=== PATIENT | male | born 1980 | race Caucasian/White ===

== ENCOUNTER 2018-07-24 10:59 | Inpatient (IN) | payer MEDICAID ==
[~2018-07-24] VITALS: Ht 180.3 cm; Wt 133.7 kg
[~2018-07-24 10:59] MED LIST: ALBU18HF INH; GUAI600T31 PO; IPRA3AMP30 NPPB; PRED20TA PO
--- NOTE | 2018-07-24 12:08 | NUR ---
lice noted on pt in triage, pt showered and placed in gown by edt. belongings double bagged, in pts room at this time. pt c/o sob and sternal chest "tightness" with cough for last several days, pt reports that chest tightness and sob are worse when he is around certain smells "like [employer] or alcohol swabs". pt also notes he has had a lesion to left leg with pain for last few weeks. +3 pulse to left dorsalis pedis. large lesion x 2 to left anterior lund. pt states he wears oxygen at 2L/min at all times, and states "my tank ran out this morning, I have more tanks though. I came here because my leg hurts and my inhaler wasn't helping my breathing." pt is a&o, resps even and unlabored. pt placed on all monitors. call light in reach. lab at bedside for draw. 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 belongings double bagged, in pts room at this time. pt c/o sob and sternal chest "tightness" with cough for last several days, pt reports that chest tightness and sob are worse when he is around certain smells "like [employer] or alcohol swabs". pt also notes he has had a lesion to left leg with pain for last few weeks. +3 pulse to left dorsalis pedis. large lesion x 2 to left anterior lund. pt states he wears oxygen at 2L/min at all times, and states "my tank ran out this morning, I have more tanks though. I came here because my leg hurts and my inhaler wasn't helping my breathing." pt is a&o, resps even and unlabored. pt placed on all monitors. mask placed on patient. call light in reach. lab at bedside for draw.
[2018-07-24 12:33] LABS: HCT (SEDRATE) 45.1 % (39.2-51.8)
[2018-07-24 12:34] LABS: BASOPHILS # (AUTO) 0.04 x10^3/uL (0-0.1); BASOPHILS % (AUTO) 0 % (0-1); EOSINOPHILS # (AUTO) 0.28 x10^3/uL (0-0.4); EOSINOPHILS % (AUTO) 3 % (1-7); LYMPHOCYTES # (AUTO) 1.18 x10^3/uL (1-3.4); LYMPHOCYTES % (AUTO) 12 % (22-44); MD NO; MEAN CORPUSCULAR HEMOGLOBIN 26.5 pg (27.5-34.5); MEAN CORPUSCULAR HGB CONC 32.6 g/dL (33.2-36.2); MEAN CORPUSCULAR VOLUME 81.3 fL (81-97); MEAN PLATELET VOLUME 7.6 fL (7.4-10.4); MONOCYTES # (AUTO) 0.37 x10^3/uL (0.2-0.8); MONOCYTES % (AUTO) 4 % (2-9); NEUTROPHILS # (AUTO) 8.31 x10^3/uL (1.8-6.8); NEUTROPHILS % (AUTO) 82 % (42-75); PLATELET COUNT 410 x10^3/uL (130-400); RED BLOOD COUNT 5.51 x10^6/uL (4.38-5.82)
[2018-07-24 12:46] LABS: ANION GAP 10 mmol/L (5-15); CALCIUM 9.2 mg/dL (8.5-10.1); CHLORIDE 107 mmol/L (98-107)
[2018-07-24 12:56] LABS: ALANINE AMINOTRANSFERASE 14 U/L (12-78); ALKALINE PHOSPHATASE 49 U/L (45-117); BILIRUBIN,TOTAL 0.4 mg/dL (0.2-1.0); CREATININE 0.96 mg/dL (0.7-1.3)
--- NOTE | 2018-07-24 13:05 | NUR ---
PT A&O, RESPS EVEN AND UNLABORED. NADN. PT TO XRAY AT THIS TIME.
[2018-07-24 13:06] LABS: TROPONIN I < 0.015 ng/mL (0.000-0.045)
[2018-07-24] MEDS ORDERED: ALBUTEROL/IPRATROPIUM 2.5MG/0.5MG, 3 ML NEB ONE (13:30)
--- NOTE | 2018-07-24 13:32 | NUR ---
PT BACK FROM XRAY, PT A&O, RESPS EVEN AND UNLABORED. PT UP TO BATHROOM TO VOID AT THIS TIME.
[2018-07-24] MEDS ORDERED: WELLBUTRIN PO (13:41)
[2018-07-24] MEDS ORDERED: METFORMIN PO (13:41)
[2018-07-24] MEDS ORDERED: TOPAMAX PO (13:41)
[2018-07-24] MEDS ORDERED: ALBUTEROL/IPRATROPIUM 2.5MG/0.5MG, 3 ML ONE (13:44)
[2018-07-24] MEDS ORDERED: CLINDAMYCIN PMX 900MG/50ML 50 ML IV ONE (14:00)
--- NOTE | 2018-07-24 14:00 | NUR ---
RT AT BEDSIDE FOR TX.
[2018-07-24] MEDS ORDERED: CLINDAMYCIN PMX 900MG/50ML 50 ML ONE (14:09)
[2018-07-24] MEDS ORDERED: SODIUM CHLORIDE FLUSH 10ML SYR IVF PRN (14:30)
--- NOTE | 2018-07-24 14:38 | NUR ---
ABX STARTED (PER EMAR) AFTER BLOOD CX DRAWN X 2. PT A&O, RESPS EVEN AND UNLABORED. PT HAS NO COMPLAINT AT THIS TIME.
[2018-07-24] MEDS ORDERED: LABETALOL 5MG/ML, 20ML IVPush PRN (15:00)
[2018-07-24] MEDS ORDERED: POLYETHYLENE GLYCOL 17 GM PACKET PO PRN (15:00)
[2018-07-24] MEDS ORDERED: ONDANSETRON ODT 4 MG PO PRN (15:00)
[2018-07-24] MEDS ORDERED: ONDANSETRON 2MG/ML, 2ML IVPush PRN (15:00)
--- NOTE | 2018-07-24 15:04 | NUR ---
REPORT GIVEN TO EUNICE SANCHES ; PT TRANSPORTED TO ROOM 369. NADN AT TRANSPORT.
[2018-07-24 15:31] VITALS: BP 112/65
[2018-07-24] MEDS: SODIUM CHLORIDE 0.9% 1,000 ML IV SCH ×2 (15:40→23:34)
[2018-07-24] MEDS ORDERED: VANCOMYCIN PER PHARMACY MC PRN (16:00)
[2018-07-24 16:14] LABS: FREE T4 (FREE THYROXINE) 1.2 ng/dL (0.76-1.46)
[2018-07-24] MEDS: AMPICILLIN/SULBACTAM 3 GM in SODIUM CHLORIDE 0.9% 100 ML IV SCH ×2 (16:40→22:37)
[2018-07-24] MEDS: ENOXAPARIN 40 MG/0.4 ML SQ SCH (16:40)
[2018-07-24] MEDS ORDERED: PHARMACOKINETIC CONSULTATION MC ONE (17:00)
[2018-07-24] MEDS ORDERED: PHARMACOKINETIC MONITORING MC PRN ×2 (17:00)
[2018-07-24] MEDS: VANCOMYCIN 2,100 MG in SODIUM CHLORIDE 0.9% 500 ML IV SCH (17:46)
[2018-07-24 20:00] VITALS: BP 117/76
[2018-07-25 02:00] VITALS: BP 128/80
[2018-07-25] MEDS ORDERED: ALBUTEROL SULFATE 2.5 MG/3 ML NPPB PRN (03:30)
[2018-07-25] MEDS: AMPICILLIN/SULBACTAM 3 GM in SODIUM CHLORIDE 0.9% 100 ML IV SCH ×2 (03:58→10:39)
[2018-07-25] MEDS: ENOXAPARIN 40 MG/0.4 ML SQ SCH ×2 (05:08→17:00)
[2018-07-25] MEDS: VANCOMYCIN 2,100 MG in SODIUM CHLORIDE 0.9% 500 ML IV SCH ×2 (05:08→17:24)
[2018-07-25 05:33] LABS: BASOPHILS # (AUTO) 0.02 x10^3/uL (0-0.1); BASOPHILS % (AUTO) 0 % (0-1); EOSINOPHILS # (AUTO) 0.06 x10^3/uL (0-0.4); EOSINOPHILS % (AUTO) 1 % (1-7); LYMPHOCYTES # (AUTO) 0.96 x10^3/uL (1-3.4); LYMPHOCYTES % (AUTO) 11 % (22-44); MD NO; MEAN CORPUSCULAR HEMOGLOBIN 26.6 pg (27.5-34.5); MEAN CORPUSCULAR HGB CONC 33.1 g/dL (33.2-36.2); MEAN CORPUSCULAR VOLUME 80.4 fL (81-97); MEAN PLATELET VOLUME 7.7 fL (7.4-10.4); MONOCYTES # (AUTO) 0.37 x10^3/uL (0.2-0.8); MONOCYTES % (AUTO) 4 % (2-9); NEUTROPHILS # (AUTO) 7.11 x10^3/uL (1.8-6.8); NEUTROPHILS % (AUTO) 84 % (42-75); PLATELET COUNT 351 x10^3/uL (130-400); RED BLOOD COUNT 4.94 x10^6/uL (4.38-5.82); RED CELL DISTRIBUTION WIDTH 16.7 % (9.4-14.8)
[2018-07-25 05:38] LABS: ALBUMIN 2.6 g/dL (3.4-5.0); ANION GAP 7 mmol/L (5-15); CALCIUM 8.7 mg/dL (8.5-10.1); CHLORIDE 105 mmol/L (98-107)
[2018-07-25 05:51] LABS: ALANINE AMINOTRANSFERASE 14 U/L (12-78); ALKALINE PHOSPHATASE 43 U/L (45-117); BILIRUBIN,TOTAL 0.3 mg/dL (0.2-1.0); CREATININE 0.71 mg/dL (0.7-1.3); THYROID STIMULATING HORMONE 0.856 mIU/L (0.358-3.740); TOTAL PROTEIN 7.5 g/dL (6.4-8.2)
[2018-07-25 07:37] VITALS: BP 122/75
[2018-07-25] MEDS: SODIUM CHLORIDE 0.9% 1,000 ML IV SCH ×2 (07:54→22:35)
[2018-07-25] MEDS: SENNA/DOCUSATE TABLET PO SCH (07:55)
[2018-07-25] MEDS ORDERED: GLUCAGON 1 MG IM PRN (13:00)
[2018-07-25] MEDS ORDERED: DEXTROSE 4 GM TAB.CHEW PO PRN (13:00)
[2018-07-25] MEDS ORDERED: DEXTROSE 50%, 50ML SYRINGE IVPush PRN (13:00)
[2018-07-25] MEDS ORDERED: BUPROPION 100 MG TABLET PO SCH (13:00)
[2018-07-25 13:05] VITALS: BP 101/59
[2018-07-25 13:27] LABS: LDL/HDL RATIO 2.4 (0.5-3.0)
[2018-07-25 13:36] LABS: HEMOGLOBIN A1C 6.6 % (4.2-6.3)
[2018-07-25] MEDS: INSULIN LISPRO 100 UNITS/ML, PEN SQ-INSULIN SCH ×2 (16:00→20:20)
[2018-07-25 20:06] VITALS: BP 120/75
[2018-07-25] MEDS: TOPIRAMATE 25 MG TABLET PO SCH (21:00)
[2018-07-25] MEDS: SODIUM CHLORIDE FLUSH 10ML SYR IVF SCH (21:19)
[2018-07-26] MEDS ORDERED: ALBUTEROL SULFATE 2.5 MG/3 ML NPPB PRN (00:30)
[2018-07-26 00:54] VITALS: BP 117/76
[2018-07-26] MEDS: VANCOMYCIN 2,100 MG in SODIUM CHLORIDE 0.9% 500 ML IV SCH (04:48)
[2018-07-26] MEDS: ENOXAPARIN 40 MG/0.4 ML SQ SCH ×2 (05:26→17:42)
[2018-07-26 05:48] LABS: BASOPHILS # (AUTO) 0.04 x10^3/uL (0-0.1); BASOPHILS % (AUTO) 1 % (0-1); EOSINOPHILS # (AUTO) 0.19 x10^3/uL (0-0.4); EOSINOPHILS % (AUTO) 3 % (1-7); LYMPHOCYTES % (AUTO) 25 % (22-44); MD NO; MEAN CORPUSCULAR HEMOGLOBIN 26.6 pg (27.5-34.5); MEAN CORPUSCULAR HGB CONC 32.9 g/dL (33.2-36.2); MEAN CORPUSCULAR VOLUME 80.9 fL (81-97); MEAN PLATELET VOLUME 7.6 fL (7.4-10.4); MONOCYTES # (AUTO) 0.43 x10^3/uL (0.2-0.8); MONOCYTES % (AUTO) 7 % (2-9); NEUTROPHILS # (AUTO) 3.76 x10^3/uL (1.8-6.8); NEUTROPHILS % (AUTO) 64 % (42-75); PLATELET COUNT 309 x10^3/uL (130-400); RED BLOOD COUNT 4.82 x10^6/uL (4.38-5.82); RED CELL DISTRIBUTION WIDTH 16.3 % (9.4-14.8)
[2018-07-26 05:49] LABS: ALBUMIN 2.4 g/dL (3.4-5.0); ANION GAP 5 mmol/L (5-15); CALCIUM 7.9 mg/dL (8.5-10.1); CHLORIDE 111 mmol/L (98-107)
[2018-07-26] MEDS: INSULIN LISPRO 100 UNITS/ML, PEN SQ-INSULIN SCH ×4 (07:35→20:56)
[2018-07-26 08:20] VITALS: BP 121/75
[2018-07-26] MEDS: SODIUM CHLORIDE 0.9% 1,000 ML IV SCH ×2 (08:57→23:55)
[2018-07-26] MEDS: SENNA/DOCUSATE TABLET PO SCH (08:58)
[2018-07-26] MEDS: TOPIRAMATE 25 MG TABLET PO SCH ×2 (08:58→20:55)
[2018-07-26] MEDS: MUPIROCIN OINT 2%, 22GM TP SCH (08:58)
[2018-07-26] MEDS: BUPROPION SR 150 MG TABLET PO SCH (08:58)
[2018-07-26] MEDS: SODIUM CHLORIDE FLUSH 10ML SYR IVF SCH ×2 (08:59→20:56)
[2018-07-26 13:44] VITALS: BP 121/72
[2018-07-26] MEDS: CEFAZOLIN PMX 2GM/50ML 50 ML IVPB SCH ×2 (17:03→23:55)
[2018-07-26 19:57] VITALS: BP 119/74
[2018-07-27 00:42] VITALS: BP 129/84
[2018-07-27 05:07] LABS: ALBUMIN 2.4 g/dL (3.4-5.0); ANION GAP 5 mmol/L (5-15); CALCIUM 8.6 mg/dL (8.5-10.1); CHLORIDE 110 mmol/L (98-107); CREATININE 0.71 mg/dL (0.7-1.3)
[2018-07-27 05:30] LABS: BASOPHILS # (AUTO) 0.03 x10^3/uL (0-0.1); BASOPHILS % (AUTO) 1 % (0-1); EOSINOPHILS # (AUTO) 0.18 x10^3/uL (0-0.4); EOSINOPHILS % (AUTO) 3 % (1-7); LYMPHOCYTES # (AUTO) 1.39 x10^3/uL (1-3.4); LYMPHOCYTES % (AUTO) 26 % (22-44); MD NO; MEAN CORPUSCULAR HEMOGLOBIN 26.5 pg (27.5-34.5); MEAN CORPUSCULAR HGB CONC 32.9 g/dL (33.2-36.2); MEAN CORPUSCULAR VOLUME 80.5 fL (81-97); MEAN PLATELET VOLUME 7.8 fL (7.4-10.4); MONOCYTES # (AUTO) 0.39 x10^3/uL (0.2-0.8); MONOCYTES % (AUTO) 7 % (2-9); NEUTROPHILS # (AUTO) 3.47 x10^3/uL (1.8-6.8); NEUTROPHILS % (AUTO) 64 % (42-75); PLATELET COUNT 294 x10^3/uL (130-400); RED BLOOD COUNT 4.86 x10^6/uL (4.38-5.82); RED CELL DISTRIBUTION WIDTH 16.6 % (9.4-14.8)
[2018-07-27] MEDS: INSULIN LISPRO 100 UNITS/ML, PEN SQ-INSULIN SCH ×4 (07:00→21:00)
[2018-07-27] MEDS: SODIUM CHLORIDE 0.9% 1,000 ML IV SCH ×3 (07:52→21:32)
[2018-07-27] MEDS: TOPIRAMATE 25 MG TABLET PO SCH ×2 (07:52→21:32)
[2018-07-27] MEDS: CEFAZOLIN PMX 2GM/50ML 50 ML IVPB SCH (07:52)
[2018-07-27] MEDS: BUPROPION SR 150 MG TABLET PO SCH (07:52)
[2018-07-27] MEDS: MUPIROCIN OINT 2%, 22GM TP SCH (07:59)
[2018-07-27] MEDS: ENOXAPARIN 40 MG/0.4 ML SQ SCH ×2 (08:00→20:00)
[2018-07-27] MEDS: SODIUM CHLORIDE FLUSH 10ML SYR IVF SCH ×2 (08:00→21:00)
[2018-07-27] MEDS: SENNA/DOCUSATE TABLET PO SCH (08:00)
[2018-07-27 08:16] VITALS: BP 143/90
[2018-07-27] MEDS ORDERED: ERTAPENEM 1 GM in SODIUM CHLORIDE 0.9% 50 ML IV SCH (10:30)
[2018-07-27 15:10] VITALS: BP_SYST 120; BP_SYST 96; BP_DIAS 62; BP_DIAS 77
[2018-07-27 20:30] VITALS: BP 123/77
[2018-07-28 00:34] VITALS: BP 122/83
[2018-07-28] MEDS: INSULIN LISPRO 100 UNITS/ML, PEN SQ-INSULIN SCH ×2 (07:00→11:00)
[2018-07-28 07:20] VITALS: BP 147/82
[2018-07-28] MEDS: SODIUM CHLORIDE 0.9% 1,000 ML IV SCH (07:30)
[2018-07-28] MEDS: ENOXAPARIN 40 MG/0.4 ML SQ SCH (07:47)
[2018-07-28] MEDS: SENNA/DOCUSATE TABLET PO SCH (07:48)
[2018-07-28] MEDS: SODIUM CHLORIDE FLUSH 10ML SYR IVF SCH (08:02)
[2018-07-28] MEDS: BUPROPION SR 150 MG TABLET PO SCH (08:02)
[2018-07-28] MEDS: TOPIRAMATE 25 MG TABLET PO SCH (08:02)
[2018-07-28] MEDS: MUPIROCIN OINT 2%, 22GM TP SCH (08:03)
[2018-07-28] MEDS ORDERED: CEPH-368 PO (08:27)
[2018-07-28] MEDS ORDERED: ERTAPENEM 1 GM in SODIUM CHLORIDE 0.9% 50 ML IV SCH (11:00)
== END 2018-07-28 14:29 | disposition home or self-care (01) | DRG 191 ==
LOC: ED 13:34 → EDIP 14:12 → 3NE 15:06
PROVIDERS: ADMIT Hospitalist; ATTEND Hospitalist
DX: J44.1 Chronic obstructive pulmonary disease with (acute) exacerbation (principal); L03.116 Cellulitis of left lower limb; J96.10 Chronic respiratory failure, unspecified whether with hypoxia or hypercapnia; L97.929 Non-pressure chronic ulcer of unspecified part of left lower leg with unspecified severity; Z68.41 Body mass index [BMI] 40.0-44.9, adult; E11.622 Type 2 diabetes mellitus with other skin ulcer; G47.33 Obstructive sleep apnea (adult) (pediatric); I10 Essential (primary) hypertension; L30.9 Dermatitis, unspecified; E66.01 Morbid (severe) obesity due to excess calories; R79.89 Other specified abnormal findings of blood chemistry; B95.61 Methicillin susceptible Staphylococcus aureus infection as the cause of diseases classified elsewhere; Z79.84 Long term (current) use of oral hypoglycemic drugs; Z82.49 Family history of ischemic heart disease and other diseases of the circulatory system; Z83.3 Family history of diabetes mellitus; Z87.891 Personal history of nicotine dependence
CPT/HCPCS: 36415; 73590; 84145; 99285; J7613; J7620; 71046; 80048; 80053; 80061; 82040; 82962; 83036; 83605; 83735; 84100; 84439; 84443; 84484; 85025; 85651; 86140; 87040; 87070; 87077; 87147; 87186; 87205; 93005; 94640; G0378; J0295; J0690; J1335; J1650; J3370; J7030; J7040; J7512

== ENCOUNTER 2018-10-04 21:07 | Emergency (ER) | payer MEDICAID ==
[~2018-10-04] VITALS: Ht 180.3 cm; Wt 133.7 kg
[~2018-10-04 21:07] MED LIST changes: +CEPH-368 PO; +METFORMIN PO; +TOPAMAX PO; +WELLBUTRIN PO
--- NOTE | 2018-10-04 21:22 | NUR ---
PT AWARE OF SHORT WAIT PRIOR TO ROOMING, VERY UNDERSTANDING
--- NOTE | 2018-10-04 23:11 | NUR ---
pt to room from lobby
--- NOTE | 2018-10-04 23:24 | NUR ---
pt to room now from lobby
[2018-10-05] MEDS ORDERED: ONDANSETRON 2MG/ML, 2ML IVPush ONE
[2018-10-05] MEDS ORDERED: MORPHINE SULFATE 4 MG/ML, 1ML IV PRN
[2018-10-05] MEDS ORDERED: CLINDAMYCIN PMX 900MG/50ML 50 ML IVPB ONE
[2018-10-05] MEDS ORDERED: MORPHINE SULFATE 4 MG/ML, 1ML ONE (00:09)
[2018-10-05] MEDS ORDERED: ONDANSETRON 2MG/ML, 2ML ONE (00:09)
[2018-10-05] MEDS ORDERED: CLINDAMYCIN PMX 900MG/50ML 50 ML ONE (00:09)
[2018-10-05 00:24] LABS: BASOPHILS # (AUTO) 0.02 x10^3/uL (0-0.1); BASOPHILS % (AUTO) 0 % (0-1); EOSINOPHILS # (AUTO) 0.05 x10^3/uL (0-0.4); EOSINOPHILS % (AUTO) 1 % (1-7); LYMPHOCYTES # (AUTO) 0.84 x10^3/uL (1-3.4); LYMPHOCYTES % (AUTO) 10 % (22-44); MD NO; MEAN CORPUSCULAR HEMOGLOBIN 26.8 pg (27.5-34.5); MEAN CORPUSCULAR VOLUME 81.4 fL (81-97); MEAN PLATELET VOLUME 7.3 fL (7.4-10.4); MONOCYTES # (AUTO) 0.48 x10^3/uL (0.2-0.8); MONOCYTES % (AUTO) 6 % (2-9); NEUTROPHILS # (AUTO) 7.39 x10^3/uL (1.8-6.8); NEUTROPHILS % (AUTO) 84 % (42-75); PLATELET COUNT 244 x10^3/uL (130-400); RED BLOOD COUNT 5.22 x10^6/uL (4.38-5.82); RED CELL DISTRIBUTION WIDTH 14.6 % (9.4-14.8)
--- NOTE | 2018-10-05 00:30 | NUR ---
IV STARTED, LABS AND 1ST SET BC DRAWN. 2ND SET OF BC DRAWN BY LAB. PT MEDICATED FOR PAIN 6/10 AND NAUSEA. IV ABX INFUSING. VSS.
[2018-10-05 00:37] LABS: ALBUMIN 3.2 g/dL (3.4-5.0); ANION GAP 7 mmol/L (5-15); CALCIUM 8.7 mg/dL (8.5-10.1); CHLORIDE 101 mmol/L (98-107)
[2018-10-05 00:41] LABS: ALANINE AMINOTRANSFERASE 14 U/L (12-78); ALKALINE PHOSPHATASE 44 U/L (45-117); BILIRUBIN,TOTAL 0.5 mg/dL (0.2-1.0); CREATININE 0.86 mg/dL (0.7-1.3)
--- NOTE | 2018-10-05 01:35 | NUR ---
PT TO US WITH TECH AT THIS TIME.
[2018-10-05] MEDS ORDERED: BACITRACIN ZINC OINT 500U/GM, 0.9 GM ONE (02:33)
[2018-10-05 02:57] VITALS: BP 112/73
== END 2018-10-05 02:59 | disposition home or self-care (01) ==
LOC: ED 10-05 00:25
DX: L03.116 Cellulitis of left lower limb (principal); E11.9 Type 2 diabetes mellitus without complications; I10 Essential (primary) hypertension; E66.01 Morbid (severe) obesity due to excess calories; Z68.41 Body mass index [BMI] 40.0-44.9, adult; Z87.891 Personal history of nicotine dependence
CPT/HCPCS: 36415; 73590; 80053; 83605; 85025; 87040; 93971; 96365; 96375; 99284; J2405

== ENCOUNTER 2019-01-10 15:30 | Inpatient (IN) | payer MEDICAID, OTHER ==
[~2019-01-10] VITALS: Ht 180.3 cm; Wt 146.6 kg
--- NOTE | 2019-01-10 15:50 | NUR ---
PT HAS CO OF LEFT LOWER LEG WOUNDS THAT HIS BEEN GOING ON FOR A WHILE. PT STATES "IT IS FROM SCRATCHING". MD AT BEDSIDE. VS STABLE. PT RESTING COMFORTABLE
[2019-01-10] MEDS ORDERED: SODIUM CHLORIDE FLUSH 10ML SYR IVF ONE (16:00)
[2019-01-10] MEDS ORDERED: AMPICILLIN/SULBACTAM 3 GM in SODIUM CHLORIDE 0.9% 100 ML IV ONE (16:00)
--- NOTE | 2019-01-10 16:15 | NUR ---
DISCUSSED Michael SMYTH IF BLOOD CULTURES NEEDED. ORDER RECIEVED.
[2019-01-10 16:21] LABS: BASOPHILS # (AUTO) 0.07 x10^3/uL (0-0.1); BASOPHILS % (AUTO) 1 % (0-1); EOSINOPHILS # (AUTO) 0.17 x10^3/uL (0-0.4); EOSINOPHILS % (AUTO) 2 % (1-7); LYMPHOCYTES # (AUTO) 1.24 x10^3/uL (1-3.4); LYMPHOCYTES % (AUTO) 18 % (22-44); MD NO; MEAN CORPUSCULAR HEMOGLOBIN 25.6 pg (27.5-34.5); MEAN CORPUSCULAR HGB CONC 32.4 g/dL (33.2-36.2); MEAN CORPUSCULAR VOLUME 79.1 fL (81-97); MEAN PLATELET VOLUME 7.9 fL (7.4-10.4); MONOCYTES # (AUTO) 0.41 x10^3/uL (0.2-0.8); MONOCYTES % (AUTO) 6 % (2-9); NEUTROPHILS % (AUTO) 73 % (42-75); PLATELET COUNT 248 x10^3/uL (130-400); RED BLOOD COUNT 5.13 x10^6/uL (4.38-5.82); RED CELL DISTRIBUTION WIDTH 15.7 % (9.4-14.8)
[2019-01-10 16:30] LABS: ALANINE AMINOTRANSFERASE 18 U/L (12-78); ALBUMIN 3.4 g/dL (3.4-5.0); ANION GAP 9 mmol/L (5-15); CALCIUM 9.3 mg/dL (8.5-10.1); CHLORIDE 106 mmol/L (98-107); CREATININE 0.78 mg/dL (0.7-1.3)
[2019-01-10 16:33] LABS: ALKALINE PHOSPHATASE 40 U/L (45-117); BILIRUBIN,TOTAL 0.2 mg/dL (0.2-1.0); TOTAL PROTEIN 7.9 g/dL (6.4-8.2)
[2019-01-10] MEDS ORDERED: MORPHINE SULFATE 4 MG/ML, 1ML ONE (16:40)
[2019-01-10] MEDS ORDERED: ONDANSETRON 2MG/ML, 2ML ONE (16:40)
--- NOTE | 2019-01-10 16:49 | NUR ---
PIV STARTED, 2ND SET OF CULTURES SENT WITH LAB. IV ABX STARTED. PT MEDICATED PER AUG FOR PAIN
[2019-01-10] MEDS ORDERED: MORPHINE SULFATE 4 MG/ML, 1ML IVPush PRN (17:00)
[2019-01-10] MEDS ORDERED: ONDANSETRON 2MG/ML, 2ML IVPush ONE (17:00)
--- NOTE | 2019-01-10 17:42 | NUR ---
REPORT GIVEN TO ANDRE. PT READY FOR TRANSPORT
[2019-01-10 17:58] VITALS: BP 118/79
[2019-01-10 19:36] VITALS: BP 121/83
[2019-01-10] MEDS ORDERED: hydrALAzine 20 MG/ML, 1ML IVPush PRN (21:00)
[2019-01-10] MEDS ORDERED: DOCUSATE 100 MG CAPSULE PO PRN (21:00)
[2019-01-10] MEDS ORDERED: morphine SULFATE 10 MG/ML, 1ML IVPush PRN (21:00)
[2019-01-10] MEDS ORDERED: LIDODERM 5% PATCH TD PRN (21:00)
[2019-01-10] MEDS ORDERED: ACETAMINOPHEN 325 MG TABLET PO PRN (21:00)
[2019-01-10] MEDS ORDERED: ONDANSETRON ODT 4 MG PO PRN (21:00)
[2019-01-10] MEDS ORDERED: TEMAZEPAM 15 MG CAPSULE PO PRN (21:00)
[2019-01-10] MEDS ORDERED: ENOXAPARIN 40 MG/0.4 ML SQ SCH (22:30)
[2019-01-10] MEDS: AMPICILLIN/SULBACTAM 3 GM in SODIUM CHLORIDE 0.9% 100 ML IV SCH (23:38)
[2019-01-11 01:48] VITALS: BP 94/58
[2019-01-11 05:30] LABS: BASOPHILS # (AUTO) 0.03 x10^3/uL (0-0.1); BASOPHILS % (AUTO) 1 % (0-1); EOSINOPHILS % (AUTO) 4 % (1-7); LYMPHOCYTES # (AUTO) 1.34 x10^3/uL (1-3.4); LYMPHOCYTES % (AUTO) 29 % (22-44); MD NO; MEAN CORPUSCULAR HGB CONC 32.2 g/dL (33.2-36.2); MEAN CORPUSCULAR VOLUME 80.7 fL (81-97); MEAN PLATELET VOLUME 8.3 fL (7.4-10.4); MONOCYTES # (AUTO) 0.33 x10^3/uL (0.2-0.8); MONOCYTES % (AUTO) 7 % (2-9); NEUTROPHILS # (AUTO) 2.71 x10^3/uL (1.8-6.8); NEUTROPHILS % (AUTO) 59 % (42-75); PLATELET COUNT 226 x10^3/uL (130-400); RED CELL DISTRIBUTION WIDTH 15.7 % (9.4-14.8)
[2019-01-11 05:37] LABS: ANION GAP 6 mmol/L (5-15); CALCIUM 8.4 mg/dL (8.5-10.1); CHLORIDE 105 mmol/L (98-107); CREATININE 0.65 mg/dL (0.7-1.3)
[2019-01-11] MEDS ORDERED: ACETAMINOPHEN 325 MG TABLET PO PRN (08:00)
[2019-01-11 08:17] VITALS: BP 152/90
[2019-01-11] MEDS: AMPICILLIN/SULBACTAM 3 GM in SODIUM CHLORIDE 0.9% 100 ML IV SCH ×4 (10:21→22:33)
[2019-01-11] MEDS: HEPARIN 5,000 UNITS/ML, 1ML SQ SCH ×2 (10:21→16:00)
[2019-01-11] MEDS: SODIUM CHLORIDE 0.9% 1,000 ML IV SCH (10:21)
[2019-01-11 13:40] VITALS: BP 121/76
[2019-01-11 19:55] VITALS: BP 133/86
[2019-01-12] MEDS: HEPARIN 5,000 UNITS/ML, 1ML SQ SCH ×3 (00:05→17:47)
[2019-01-12 01:09] VITALS: BP 130/79
[2019-01-12] MEDS: AMPICILLIN/SULBACTAM 3 GM in SODIUM CHLORIDE 0.9% 100 ML IV SCH ×3 (04:08→17:46)
[2019-01-12] MEDS: SODIUM CHLORIDE 0.9% 1,000 ML IV SCH (08:36)
[2019-01-12 09:20] VITALS: BP 116/66
[2019-01-12 15:47] VITALS: BP 139/89
[2019-01-12 20:41] VITALS: BP 134/89
[2019-01-13] MEDS: AMPICILLIN/SULBACTAM 3 GM in SODIUM CHLORIDE 0.9% 100 ML IV SCH ×2 (00:10→05:42)
[2019-01-13] MEDS: HEPARIN 5,000 UNITS/ML, 1ML SQ SCH ×2 (00:10→10:19)
[2019-01-13 01:06] VITALS: BP 134/87
[2019-01-13 06:49] VITALS: BP 120/72
[2019-01-13] MEDS ORDERED: AMOXICILLIN/CLAV 875-125MG TABLET PO SCH (07:30)
[2019-01-13] MEDS: SODIUM CHLORIDE 0.9% 1,000 ML IV SCH (10:19)
[2019-01-13] MEDS ORDERED: ACET325T26 PO (10:46)
[2019-01-13] MEDS ORDERED: AMOX1TAB12 PO (10:46)
[2019-01-13 12:31] VITALS: BP 134/86
== END 2019-01-13 16:15 | disposition home or self-care (01) | DRG 603 ==
LOC: ED 16:05 → EDIP 17:47 → 3NE 18:00 → DCLOUNGE 01-13 16:10
PROVIDERS: ADMIT Internal Medicine; ATTEND Internal Medicine
PROC: 5A09357 Assistance with Respiratory Ventilation, Less than 24 Consecutive Hours, Continuous Positive Airway Pressure (ICD-10-PCS; principal; 2019-01-11)
PROC: 5A09357 Assistance with Respiratory Ventilation, Less than 24 Consecutive Hours, Continuous Positive Airway Pressure (ICD-10-PCS; 2019-01-12)
DX: L03.116 Cellulitis of left lower limb (principal); E66.2 Morbid (severe) obesity with alveolar hypoventilation; J96.10 Chronic respiratory failure, unspecified whether with hypoxia or hypercapnia; Z68.42 Body mass index [BMI] 45.0-49.9, adult; L97.929 Non-pressure chronic ulcer of unspecified part of left lower leg with unspecified severity; E11.9 Type 2 diabetes mellitus without complications; G47.33 Obstructive sleep apnea (adult) (pediatric); I10 Essential (primary) hypertension; J44.9 Chronic obstructive pulmonary disease, unspecified; E66.01 Morbid (severe) obesity due to excess calories; Z82.49 Family history of ischemic heart disease and other diseases of the circulatory system; Z87.891 Personal history of nicotine dependence; Z83.3 Family history of diabetes mellitus
CPT/HCPCS: 36415; 80048; 80053; 85025; 87040; 94660; 99285; G0378; J0295; J1644; J1650; J2405; J2270; J7030

== ENCOUNTER 2019-05-14 15:50 | Emergency (ER) ==
[~2019-05-14] VITALS: Ht 180.3 cm; Wt 145.0 kg
[~2019-05-14 15:50] MED LIST changes: +ACET325T26 PO; +AMOX1TAB12 PO
--- NOTE | 2019-05-14 16:22 | NUR ---
BIB EMS FOR SOB, AND PRODUCTIVE COUGH W YELLOW SPUTUM. PT STATES HE HAD NOT BEEN FEELING WELL FOR 1 WEEK. DENIES N/V/D. PT STATES HIS THROAT IS SORE. PT HAS MILD LABORED BREATHING. VS STABLE.
--- NOTE | 2019-05-14 16:38 | NUR ---
GIVEN WARM WATTER AND SOAP TO CLEAN FEET. FEET ARE MALODOROUS
--- NOTE | 2019-05-14 18:10 | NUR ---
Patient/Caregiver given discharge instructions and they have confirmed that they understand the instructions. Patient ambulatory with steady gait.
[2019-05-14 18:34] VITALS: BP 139/78
== END 2019-05-14 18:39 | disposition home or self-care (01) ==
LOC: ED 17:34
DX: J45.31 Mild persistent asthma with (acute) exacerbation (principal); L03.116 Cellulitis of left lower limb; L03.115 Cellulitis of right lower limb; E11.9 Type 2 diabetes mellitus without complications; I10 Essential (primary) hypertension; E66.01 Morbid (severe) obesity due to excess calories; Z68.41 Body mass index [BMI] 40.0-44.9, adult; J44.9 Chronic obstructive pulmonary disease, unspecified
CPT/HCPCS: 71045; 99283